=== PATIENT | female | born 1995 | race African-American/Black ===

== ENCOUNTER 2022-06-12 09:52 | Inpatient (IN) ==
[2022-06-12] MEDS ORDERED: CITRIC ACID/SODIUM CITRATE 30 ML UDCUP PO ONE (10:36)
[2022-06-12] MEDS ORDERED: miSOPROStoL 200 MCG TABLET RECTAL PRN (10:36)
[2022-06-12] MEDS ORDERED: TRANEXAMIC ACID 1,000 MG in SODIUM CHLORIDE 0.9% 100 ML IV PRN (10:36)
[2022-06-12] MEDS ORDERED: CARBOPROST TROMETHAMINE 250 MCG/ML AMP IM PRN (10:36)
[2022-06-12] MEDS ORDERED: OXYTOCIN/LR 20 UNIT/1,000 ML BAG IV ONE (10:36)
[2022-06-12] MEDS ORDERED: METHYLERGONOVINE 0.2 MG/1 ML AMP IM PRN (10:36)
[2022-06-12] MEDS ORDERED: CLINDAMYCIN INJ 900 MG/50 ML PREMIX IV ONE (10:36)
[2022-06-12] MEDS ORDERED: FAMOTIDINE 20 MG/2 ML VIAL IV ONE (10:36)
[2022-06-12] MEDS: LACTATED RINGERS 1,000 ML IV SCH ×2 (10:40→19:01)
[2022-06-12] MEDS ORDERED: OXYTOCIN/LR 30 UNIT/1,000 ML BAG IV ONE (11:03)
[2022-06-12] MEDS ORDERED: OXYTOCIN 10 UNIT/ML VIAL IM ONE (11:03)
[2022-06-12] MEDS ORDERED: ACETAMINOPHEN 500 MG TABLET PO ONE (11:04)
[2022-06-12 11:08] LABS: Basophils % 0.3 % (0.0-0.8); Eosinophils # 0.1 10*3/uL (0.0-0.87); Eosinophils % 0.7 % (0.00-10.9); Hematocrit 26.8 VOL% (35.7-47.0); Hemoglobin 8.8 GM/DL (12.0-16.0); Immature Granulocytes % 0.7 %; Immature Granulocytes Absolute 0.05 #; Lymphocytes # 1.5 10*3/uL (1.4-4.0); Lymphocytes % 20.3 % (21.3-54.2); Mean Corpuscular HGB Conc 32.8 GM/DL (32-36); Mean Corpuscular Volume 85.1 FL (87-102); Mean Platelet Volume 9.3 FL (9.6-12.0); Monocytes # 0.8 10*3/uL (0.11-0.8); Monocytes % 10.8 % (1.7-12.7); Neutrophils % 67.2 % (38.7-73.9); Platelet Count 231 T/CUMM (130-400); Red Blood Count 3.15 MC/CUMM (3.8-5.5); Red Cell Distribution Width 14.3 % (9.3-17.3); White Blood Count 7.1 T/CUMM (4-12)
[2022-06-12 11:23] LABS: Albumin 2.3 G/DL (3.4-5.0); Bilirubin,Total 0.5 MG/DL (0.20-1.00); Calcium 8.3 MG/DL (8.5-10.1); Osmolality,Calculated 277.1 MOS/KG (273-304)
[2022-06-12 11:30] LABS: Potassium 2.4 MMOL/L (3.5-5.1)
[2022-06-12] MEDS ORDERED: SODIUM CHLORIDE 0.9% 1,000 ML IV PRN (11:58)
[2022-06-12] MEDS: POTASSIUM CHLORIDE RIDER 10 MEQ/100 ML PREMIX IV PRN ×2 (12:30→16:19)
[2022-06-12] MEDS: POTASSIUM CHLORIDE 20 MEQ TABLET PO PRN ×5 (12:31→23:06)
[2022-06-12 22:16] LABS: Hematocrit 28.8 VOL% (35.7-47.0); Hemoglobin 9.3 GM/DL (12.0-16.0)
[2022-06-13] MEDS: POTASSIUM CHLORIDE 20 MEQ TABLET PO PRN ×3 (00:55→06:17)
[2022-06-13] MEDS ORDERED: OXYTOCIN 10 UNIT/ML VIAL IM ONE (06:00)
[2022-06-13] MEDS ORDERED: CITRIC ACID/SODIUM CITRATE 30 ML UDCUP PO ONE ×3 (06:00)
[2022-06-13] MEDS ORDERED: CLINDAMYCIN INJ 900 MG/50 ML PREMIX IV ONE (06:00)
[2022-06-13] MEDS ORDERED: OXYTOCIN/LR 30 UNIT/1,000 ML BAG IV ONE (06:00)
[2022-06-13] MEDS ORDERED: FAMOTIDINE 20 MG/2 ML VIAL IV ONE (06:00)
[2022-06-13] MEDS ORDERED: buprenorphine HCL 0.3 MG/ML VIAL ONE (09:06)
[2022-06-13] MEDS ORDERED: ONDANSETRON 4 MG/2 ML VIAL ONE (09:44)
[2022-06-13] MEDS ORDERED: LACTATED RINGERS 2,000 ML IV ONE ×2 (09:44)
[2022-06-13] MEDS ORDERED: PHENYLEPHRINE 1 MG/10 ML SYRINGE IV ONE (09:44)
[2022-06-13] MEDS ORDERED: BUPIVACAINE MPF 0.5% 30 ML VIAL ONE (09:44)
[2022-06-13] MEDS ORDERED: DEXMEDETOMIDINE 200 MCG/2 ML VIAL ONE (09:44)
[2022-06-13 09:58] LABS: Cord Arterial Blood HCO3 23.5 MMOL/L
[2022-06-13] MEDS: OXYTOCIN/LR 30 UNIT/1,000 ML BAG IV SCH ×2 (10:00→13:33)
[2022-06-13 10:01] LABS: Mucus,Urine Occasional /LPF (Occasional); RBC,Urine 1 /HPF (0-4)
[2022-06-13] MEDS ORDERED: KETOROLAC 30 MG/1 ML VIAL ONE (10:01)
[2022-06-13 10:02] LABS: Cord Venous Blood HCO3 23.9 MMOL/L; Cord Venous Blood PCO2 35.5 MMHG; Cord Venous Blood PO2 23.7
[2022-06-13 10:03] LABS: Bilirubin,Urine Negative (Negative); Blood, Urine Negative (Negative); Glucose,Urine (UA) Negative (Negative); Ketones,Urine Negative (Negative); Nitrite,Urine Negative (Negative); Protein,Urine Negative (Negative); Urine Appearance Clear (Clear); Urine Color Yellow (Yellow); Urine pH 7.5 (4.5-8.0)
[2022-06-13] MEDS ORDERED: ACETAMINOPHEN 325 MG TABLET PO PRN (10:23)
[2022-06-13] MEDS ORDERED: OXYTOCIN/LR 20 UNIT/1,000 ML BAG IV ONE (10:23)
[2022-06-13] MEDS ORDERED: ONDANSETRON 4 MG/2 ML VIAL IV PRN (10:23)
[2022-06-13] MEDS ORDERED: RHO(D) IMMUNE GLOBULIN 300 MCG SYRINGE IM ONE (10:23)
[2022-06-13] MEDS ORDERED: LACTATED RINGERS 1,000 ML IV SCH (10:30)
[2022-06-13] MEDS ORDERED: ACETAMINOPHEN 500 MG TABLET PO SCH (13:00)
[2022-06-13] MEDS ORDERED: POTASSIUM CHLORIDE 20 MEQ TABLET PO SCH (13:00)
[2022-06-13 13:20] LABS: Basophils % 0.2 % (0.0-0.8); Eosinophils % 0.2 % (0.00-10.9); Hematocrit 22.7 VOL% (35.7-47.0); Hemoglobin 6.9 GM/DL (12.0-16.0); Immature Granulocytes % 0.6 %; Immature Granulocytes Absolute 0.03 #; Lymphocytes # 0.8 10*3/uL (1.4-4.0); Lymphocytes % 16.7 % (21.3-54.2); Mean Corpuscular HGB Conc 30.4 GM/DL (32-36); Mean Corpuscular Volume 91.2 FL (87-102); Mean Platelet Volume 9.8 FL (9.6-12.0); Monocytes # 0.4 10*3/uL (0.11-0.8); Monocytes % 8.1 % (1.7-12.7); Neutrophils % 74.2 % (38.7-73.9); Platelet Count 151 T/CUMM (130-400); Red Blood Count 2.49 MC/CUMM (3.8-5.5); Red Cell Distribution Width 14.6 % (9.3-17.3); White Blood Count 4.9 T/CUMM (4-12)
[2022-06-13] MEDS: POTASSIUM CHLORIDE 20 MEQ TABLET PO SCH ×3 (13:30→21:59)
[2022-06-13] MEDS: KETOROLAC 30 MG/1 ML VIAL IV SCH ×2 (15:13→21:57)
[2022-06-13] MEDS: ACETAMINOPHEN 500 MG TABLET PO SCH ×2 (15:47→21:50)
[2022-06-13] MEDS: CLINDAMYCIN INJ 900 MG/50 ML PREMIX IV SCH (16:40)
[2022-06-13 18:46] LABS: Basophils % 0.2 % (0.0-0.8); Eosinophils % 0.1 % (0.00-10.9); Hematocrit 29.6 VOL% (35.7-47.0); Hemoglobin 9.7 GM/DL (12.0-16.0); Immature Granulocytes % 0.5 %; Immature Granulocytes Absolute 0.05 #; Lymphocytes # 1.1 10*3/uL (1.4-4.0); Lymphocytes % 10.7 % (21.3-54.2); Mean Corpuscular HGB Conc 32.8 GM/DL (32-36); Mean Corpuscular Volume 84.3 FL (87-102); Mean Platelet Volume 9.6 FL (9.6-12.0); Monocytes # 0.9 10*3/uL (0.11-0.8); Monocytes % 9.3 % (1.7-12.7); Neutrophils % 79.2 % (38.7-73.9); Platelet Count 215 T/CUMM (130-400); Red Blood Count 3.51 MC/CUMM (3.8-5.5); Red Cell Distribution Width 14.4 % (9.3-17.3); White Blood Count 9.9 T/CUMM (4-12)
[2022-06-13] MEDS ORDERED: SODIUM CHLORIDE 0.9% 1,000 ML IV PRN ×5 (19:59→20:18)
[2022-06-13] MEDS: DOCUSATE SODIUM 100 MG CAPSULE PO SCH (21:48)
[2022-06-14] MEDS: CLINDAMYCIN INJ 900 MG/50 ML PREMIX IV SCH (00:59)
[2022-06-14] MEDS: ACETAMINOPHEN 500 MG TABLET PO SCH ×2 (04:43→12:37)
[2022-06-14] MEDS: KETOROLAC 30 MG/1 ML VIAL IV SCH (04:44)
[2022-06-14 06:18] LABS: Basophils % 0.4 % (0.0-0.8); Eosinophils % 0.3 % (0.00-10.9); Hematocrit 25.5 VOL% (35.7-47.0); Hemoglobin 8.4 GM/DL (12.0-16.0); Immature Granulocytes % 0.5 %; Immature Granulocytes Absolute 0.05 #; Lymphocytes # 1.7 10*3/uL (1.4-4.0); Lymphocytes % 18.5 % (21.3-54.2); Mean Corpuscular HGB Conc 32.9 GM/DL (32-36); Mean Corpuscular Volume 85.9 FL (87-102); Mean Platelet Volume 9.8 FL (9.6-12.0); Monocytes # 0.9 10*3/uL (0.11-0.8); Monocytes % 10.2 % (1.7-12.7); Neutrophils % 70.1 % (38.7-73.9); Platelet Count 198 T/CUMM (130-400); Red Blood Count 2.97 MC/CUMM (3.8-5.5); Red Cell Distribution Width 14.5 % (9.3-17.3); White Blood Count 9.2 T/CUMM (4-12)
[2022-06-14] MEDS: IBUPROFEN 800 MG TABLET PO PRN ×2 (09:16→21:40)
[2022-06-14] MEDS: DOCUSATE SODIUM 100 MG CAPSULE PO SCH ×2 (09:16→20:25)
[2022-06-14] MEDS: POTASSIUM CHLORIDE 20 MEQ TABLET PO SCH (09:16)
[2022-06-14] MEDS: MULTIVITAMIN (PRENATAL) TABLET PO SCH (09:18)
[2022-06-14] MEDS: FERROUS SULFATE 325 MG TABLET PO SCH ×2 (09:18→20:25)
[2022-06-14] MEDS: MAGNESIUM HYDROXIDE SUSP 30 ML UDCUP PO PRN ×2 (09:18→20:25)
[2022-06-14] MEDS: METOCLOPRAMIDE 10 MG TABLET PO SCH ×3 (12:40→23:59)
[2022-06-14] MEDS: SIMETHICONE CHEW 80 MG TABLET PO PRN (20:25)
[2022-06-15] MEDS: IBUPROFEN 800 MG TABLET PO PRN (05:49)
[2022-06-15] MEDS: MAGNESIUM HYDROXIDE SUSP 30 ML UDCUP PO PRN (08:08)
[2022-06-15] MEDS: MULTIVITAMIN (PRENATAL) TABLET PO SCH (08:08)
[2022-06-15] MEDS: METOCLOPRAMIDE 10 MG TABLET PO SCH (08:08)
[2022-06-15] MEDS: SIMETHICONE CHEW 80 MG TABLET PO PRN (08:08)
[2022-06-15] MEDS: POTASSIUM CHLORIDE 20 MEQ TABLET PO SCH (08:09)
[2022-06-15] MEDS: FERROUS SULFATE 325 MG TABLET PO SCH (08:09)
[2022-06-15] MEDS: DOCUSATE SODIUM 100 MG CAPSULE PO SCH (08:09)
[2022-06-15 09:26] VITALS: BP 112/79
== END 2022-06-15 12:05 | disposition home or self-care (01) | DRG 540 ==
LOC: N.LD 09:52 → N.OB 06-13 13:37
PROVIDERS: ADMIT Obstetrics & Gynecology; ATTEND Obstetrics & Gynecology
PROC: LDCSECT (ICD-10-PCS; 2022-06-13 09:30)